=== PATIENT | male | born 1960 | race Caucasian/White ===

== ENCOUNTER 2021-06-18 16:33 | Emergency (ER) | payer OTHER, SELFPAY ==
--- NOTE | ~2021-06-18 | XR_ITS ---
[XR ribs LT 2V w CXR 2V ] INDICATION: Left anterior rib pain TECHNIQUE: Frontal projection of the upper left ribs, frontal projection of the lower left ribs, obli que projection of all the left ribs, frontal inspiratory chest x-ray for interpretation. FINDINGS: There are no displaced rib fractures identified. There are no soft tissue abnormality see n. The lungs are clear. Calcified granuloma left lower lung zone. IMPRESSION: 1:No displaced rib fractures. Reviewed, dictated and finalized at location [facility] [employer]
[2021-06-18 16:34] VITALS: RESP 17
[2021-06-18 16:39] VITALS: BP 123/74; PULSE 73; RESP 18; TEMP 36.1; O2SAT 96
--- NOTE | 2021-06-18 17:11 | ED.GENADULT ---
HPI - General Adult General Chief complaint: Unspecified Stated complaint: broken rib Time Seen by Provider: 06/18/21 16:41 Source: patient History of Present Illness HPI narrative: Patient presents with left-sided chest pain. Patient reports he was rolling a trash can when he slipped and fell into the trashcan landing on his left chest with the inability into his chest. He came to the ER for evaluation is concern for a rib fracture. His pain is sharp, constant, worse with moving his chest and with deep inspiration. Denies striking his head denies any loss of consciousness reports he is on 81 mg of aspirin but no additional blood thinners. Denies any focal numbness or tingling s denies any changes in vision Related Data Home Medications Medication Instructions Recorded Confirmed Adults Multivitamin See Rx Instructions .ROUTE .COMPLEX 05/29/19 06/18/21 vitamin B complex [B 1 tablet PO DAILY 05/29/19 06/18/21 Complex-Vitamin B12] Allergies Allergy/AdvReac Type Severity Reaction Status Date / Time No Known Allergies Allergy Verified 06/18/21 16:34 Review of Systems Review of Systems: CONSTITUTIONAL: Denies fever, chills, or sweats. EYES: Denies visual changes, redness, or discharge. ENT: Denies rhinorrhea, congestion, sore throat, or otalgia. CARDIOVASCULAR: Denies palpitations, or edema. RESPIRATORY: Denies cough or dyspnea. GASTROINTESTINAL: Denies abdominal pain, nausea, vomiting, or diarrhea. GENITOURINARY: Denies dysuria or hematuria. SKIN: Denies rash or itching. MUSCULOSKELETAL: Denies back pain, joint pain, or myalgia. NEUROLOGIC: Denies headache, numbness, dizziness, or weakness. PSYCHIATRIC: Denies anxiety or depression. All systems reviewed & are unremarkable except as noted in HPI and below PMFSH Past Medical History Medical History Colon polyps Hypercholesteremia Sleep apnea Surgical History Surgical History History of spinal surgery History of tonsillectomy Family History Family History Mother Breast cancer Father Heart disease Sibling Colon cancer Social History Social History Smoking packs per day: 1.5 Smoking cigarettes per day: 30.0 Years smoked: 43 Smoking pack-years: 64.50 Smoking status: Current every day smoker Tobacco type: cigarettes Second hand tobacco smoke exposure: Yes Gender identity (if verbalized by the patient): Male Exam Narrative: GENERAL: Well-appearing, well-nourished, and in no acute distress. HEAD: Normocephalic, atraumatic. EYES: PERRLA and EOMI. ENT: Nares clear, no rhinorrhea or epistaxis. Mucous membranes moist. NECK: Supple. No masses. No JVD CHEST: Slight diminished aeration on the left chest moderate tenderness on the left anterior inferior lateral chest wall with overlying ecchymoses no open or draining wounds EXTREMITIES: Normal range of motion. No edema. SKIN: Warm, dry, no rash. NEURO: No focal deficits. Alert and oriented x3. PSYCH: Normal mood and affect. Course Reevaluation(s) Reevaluation #1: Results and plan reviewed with patient. Patient comfortable outpatient plan. Date: 06/18/21 Time: 17:13 Vital Signs Vital signs: Vital Signs Respiratory Rate 17 06/18/21 16:34 Temperature 36.1 C L 06/18/21 16:39 Pulse Rate 73 06/18/21 16:39 Respiratory Rate 18 06/18/21 16:39 Blood Pressure 123/74 06/18/21 16:39 Pulse Oximetry 96 06/18/21 16:39 Medical Decision Making MDM Narrative Medical decision making narrative: H&P as above, vss, pt looks clinically well, exam with tenderness on the chest wall, imaging without acute process, additional labs/img considered, symptomatic relief available as needed, patient was given I-S education on reevaluation pt continues to looks clinically we
[2021-06-18] MEDS: KETOROLAC 30 MG/ML VIAL (*BKC) IM (17:58)
== END 2021-06-18 18:01 | disposition home or self-care (01) ==
PROVIDERS: Emergency Provider Emergency Medicine; PCP Internal Medicine
DX: R07.89 Other chest pain (principal); Z86.010 Personal history of colon polyps; E78.00 Pure hypercholesterolemia, unspecified; G47.30 Sleep apnea, unspecified; F17.210 Nicotine dependence, cigarettes, uncomplicated; W01.198A Fall on same level from slipping, tripping and stumbling with subsequent striking against other object, initial encounter
CPT/HCPCS: 71046; 71100; 96372; 99283; J1885

== ENCOUNTER 2023-12-10 00:42 | Day surgery (SDC) | payer OTHER, SELFPAY ==
[2023-11-22 13:10] VITALS: BMI 29.0
[2023-12-10 08:08] VITALS: BP 122/80; PULSE 64; RESP 18; TEMP 36.2; O2SAT 97
[2023-12-10] MEDS: LACTATED RINGERS 1,000 ML 150 ML IV CONT (08:16)
--- NOTE | 2023-12-10 08:23 | WPDANESEPPF ---
Anes - Initial Pre Proc Eval Procedure: Operation Date: 12/10/23 09:30 Proposed Procedures p Screening Colonoscopy - Giuseppe Buitrago MD Date/Time: 12/10/23 08:23 Surgeon: Giuseppe Buitrago MD Pre Op Diagnosis: neoplasm screening Patient Data Age: 63 Gender: M Height: 1.78 m Weight: 86.3 kg Last Vital Signs Temp 97.1 F L 12/10/23 08:08 Pulse 64 12/10/23 08:08 Resp 18 12/10/23 08:08 BP 122/80 12/10/23 08:08 Pulse Ox 97 12/10/23 08:08 O2 Del Method Room Air 12/10/23 08:08 Allergies Allergy/AdvReac Type Severity Reaction Status Date / Time No Known Allergies Allergy Verified 12/10/23 08:07 Home Medications Medication Instructions Recorded Confirmed Type multivit with minerals-iron 18 See Rx Instructions .Route .COMPLEX 05/29/19 11/22/23 History mg-folic ac 400 mcg-vit K 25 mcg tablet (Adults Multivitamin) aspirin 81 mg chewable tablet 81 mg PO DAILY 07/20/23 11/22/23 History atorvastatin 40 mg tablet 40 mg PO QHS #30 tabs 07/20/23 11/22/23 Rx metoprolol succinate 25 mg 25 mg PO DAILY #30 tabs 07/20/23 11/22/23 Rx tablet,extended release 24 hr zinc gluconate 100 mg tablet 100 mg PO DAILY 07/20/23 11/22/23 History tamsulosin 0.4 mg capsule (Flomax) 0.4 mg PO DAILY #7 caps 09/25/23 11/22/23 Rx Patient hx anesthesia problems: none Family hx anesthesia problems: none Results Review: All pre-operative results and documents have been reviewed as part of the pre-operative evaluation. [facility] Past Medical History Medical History (Updated 09/24/23 @ 16:05 by Evelyn Mary PA-C) Alcoholism in recovery C. difficile diarrhea Colon polyps COPD (chronic obstructive pulmonary disease) Dyslipidemia Hx of Mycobacterium avium complex infection Hypogonadism in male Restless leg syndrome Sleep apnea Surgical History Surgical History History of spinal surgery History of tonsillectomy Family History Family History Mother Breast cancer Father Heart disease Sibling Colon cancer Social History Social History (Updated 09/08/22 @ 15:35 by Tierra Horta MA) Smoking packs per day: 0.5 Smoking cigarettes per day: 10.0 Years smoked: 48 Smoking pack-years: 24.00 Smoking status: Current every day smoker Tobacco type: cigarettes Second hand tobacco smoke exposure: Yes Alcohol intake: never Substance use: never Substance use type: does not use Lack of Transportation: No Lack of Food: Never True Current Housing: I Have Housing Concerned About Future Housing: No Difficulty Paying Gas/Electric Bills: No Difficulty Paying for Meds: No Currently Unemployed: No Education: High School Diploma/GED Difficulty w/ Childcare or Family Care: No Living arrangements: with family Occupation/Education: occupation Gender identity (if verbalized by the patient): Male Spiritual care concerns: No Anes - Eval Final PreProcedure Day of Procedure 12/10/23 08:23 Patient weight: normal Heart: regular rate and rhythm Lungs: clear to auscultation Airway: Mallampati scale class II Neurological: alert and oriented Last oral intake: >/= 8 hours ASA classification: III Emergent: no Anesthetic plan: proceed Anesthesia type and monitoring: general GIVS and standard monitoring Results Review: All pre-operative results and documents have been reviewed as part of the pre-operative evaluation. Informed Consent: The patient's anesthetic plan and its attendant risks and benefits were discussed with the patient/family/POA. Questions were solicited and answers provided to the satisfaction of the patient/family/POA.
--- NOTE | 2023-12-10 09:09 | PM.HPGS ---
History of Present Illness History of Present Illness Consent: Risks, benefits, and alternatives have been discussed and questions answered. Patient agrees to proceed with procedure. Chief complaint: neoplasm screening Narrative: Reynaldo Coreas is a 63 year old male here for colonoscopy, last one in 2019, brother had colon cancer Review of Systems Review of Systems: All systems reviewed & are unremarkable except as noted in HPI and below PMFSH Past Medical History Medical History (Updated 12/10/23 @ 09:10 by Giuseppe Buitrago MD) Alcoholism in recovery C. difficile diarrhea Colon polyps COPD (chronic obstructive pulmonary disease) Dyslipidemia Family history of colon cancer Hx of Mycobacterium avium complex infection Hypogonadism in male Restless leg syndrome Sleep apnea Surgical History Surgical History History of spinal surgery History of tonsillectomy Family History Family History Mother Breast cancer Father Heart disease Sibling Colon cancer Social History Social History (Updated 09/08/22 @ 15:35 by Tierra Horta MA) Smoking packs per day: 0.5 Smoking cigarettes per day: 10.0 Years smoked: 48 Smoking pack-years: 24.00 Smoking status: Current every day smoker Tobacco type: cigarettes Second hand tobacco smoke exposure: Yes Alcohol intake: never Substance use: never Substance use type: does not use Lack of Transportation: No Lack of Food: Never True Current Housing: I Have Housing Concerned About Future Housing: No Difficulty Paying Gas/Electric Bills: No Difficulty Paying for Meds: No Currently Unemployed: No Education: High School Diploma/GED Difficulty w/ Childcare or Family Care: No Living arrangements: with family Occupation/Education: occupation Gender identity (if verbalized by the patient): Male Spiritual care concerns: No Meds Home Medications and Allergies Home Medications Medication Instructions Recorded Confirmed Type multivit with minerals-iron 18 See Rx Instructions .Route .COMPLEX 05/29/19 11/22/23 History mg-folic ac 400 mcg-vit K 25 mcg tablet (Adults Multivitamin) aspirin 81 mg chewable tablet 81 mg PO DAILY 07/20/23 11/22/23 History atorvastatin 40 mg tablet 40 mg PO QHS #30 tabs 07/20/23 11/22/23 Rx metoprolol succinate 25 mg 25 mg PO DAILY #30 tabs 07/20/23 11/22/23 Rx tablet,extended release 24 hr zinc gluconate 100 mg tablet 100 mg PO DAILY 07/20/23 11/22/23 History tamsulosin 0.4 mg capsule (Flomax) 0.4 mg PO DAILY #7 caps 09/25/23 11/22/23 Rx Allergies Allergy/AdvReac Type Severity Reaction Status Date / Time No Known Allergies Allergy Verified 12/10/23 08:07 Vital Signs Vital Signs - 24 hr 12/10/23 08:08 Temperature 97.1 F L Pulse Rate 64 Respiratory Rate 18 Blood Pressure 122/80 Pulse Oximetry 97 Oxygen Delivery Room Air Exam Const: General: comfortable and no acute distress HENMT: Face/Nose/Sinus: Normal nares present Eyes: General: appearance normal, both eyes and all related structures Neck: Neck: no JVD Resp: Auscultation: clear to auscultation bilaterally Cardio: Rate: regular rate Rhythm: regular rhythm GI: Inspection: non-distended GI Palp: Yes Soft to palpation Skin: General skin exam: normal color Neuro: General: gait normal Speech: normal speech Extrem: General: normal to inspection Psych: Mental Status: mental status grossly normal Assessment and Plan Assessment and plan (1) Family history of colon cancer: Code(s): Z80.0 - Family history of malignant neoplasm of digestive organs Status: Acute Assessment and Plan: colonoscopy
[2023-12-10 09:32] VITALS: BP 97/60; PULSE 60; RESP 18; O2SAT 95
[2023-12-10 09:42] VITALS: BP 103/60; PULSE 55; RESP 18; O2SAT 95
[2023-12-10 09:50] VITALS: BP 113/64; PULSE 50; RESP 18; O2SAT 99
== END 2023-12-10 10:01 | disposition home or self-care (01) ==
PROVIDERS: PCP Physician Assistant Medical; Visit Provider Internal Medicine Gastroenterology
PROC: 0DJD8ZZ Inspection of Lower Intestinal Tract, Via Natural or Artificial Opening Endoscopic (ICD-10-PCS; CPT 45378; principal; 2023-12-10 09:30)
DX: Z12.11 Encounter for screening for malignant neoplasm of colon (principal); D12.3 Benign neoplasm of transverse colon; K64.8 Other hemorrhoids; K57.30 Diverticulosis of large intestine without perforation or abscess without bleeding; J44.9 Chronic obstructive pulmonary disease, unspecified; E29.1 Testicular hypofunction; G25.81 Restless legs syndrome; G47.30 Sleep apnea, unspecified; F17.210 Nicotine dependence, cigarettes, uncomplicated; Z79.82 Long term (current) use of aspirin; Z98.890 Other specified postprocedural states; Z98.1 Arthrodesis status; Z80.3 Family history of malignant neoplasm of breast; Z80.0 Family history of malignant neoplasm of digestive organs; Z82.49 Family history of ischemic heart disease and other diseases of the circulatory system
CPT/HCPCS: 45385; 88305; J2001; J2704; J7120